=== PATIENT | male | born 1980 ===

== ENCOUNTER → 2016-07-17 | Outpatient (CLI) | payer OTHER | LOC: LAB 13:45 | DX: Z00.00 Encounter for general adult medical examination without abnormal findings (principal) ==

== ENCOUNTER → 2019-01-14 | Outpatient (CLI) | payer BC ==
[2019-01-14 07:56] LABS: EOS # 0.1 (0.04-0.40); HEMATOCRIT 48.5 % (42.0-52.0); HEMOGLOBIN 16.6 g/dL (13.5-18.0); LYMPH# 1.4 (1.50-4.00); MEAN CELL VOLUME 86 fl (78-100); MEAN CORPUSCULAR HEMOGLOBIN 29 pg (27-31); MEAN CORPUSCULAR HGB CONC 34 g/dL (33-37); MEAN PLATELET VOLUME 9.5 fl (7.4-10.4); MONO # 0.5 (0.20-0.80); PLATELET COUNT 207 K/mm3 (130-400); RED BLOOD COUNT 5.65 M/mm3 (4.20-5.60); RED CELL DISTRIBUTION WIDTH 12.3 % (11.5-14.5)
[2019-01-14 08:03] LABS: ALBUMIN 4.3 g/dL (3.5-5.0)
[2019-01-14 08:04] LABS: CALCIUM 9.4 mg/dL (8.3-10.5)
[2019-01-14 08:06] LABS: TOTAL PROTEIN 7.2 g/dL (6.4-8.3)
[2019-01-14 08:07] LABS: TOTAL BILIRUBIN 0.9 mg/dL (0.2-1.2)
== END ==
LOC: LAB 07:42
PROVIDERS: Internal Medicine
DX: Z00.00 Encounter for general adult medical examination without abnormal findings (principal); E78.2 Mixed hyperlipidemia; R53.83 Other fatigue; E66.9 Obesity, unspecified; Z72.0 Tobacco use

== ENCOUNTER → 2021-01-17 | Outpatient (CLI) | payer BC ==
[2021-01-17 09:30] LABS: ALBUMIN 4.5 g/dL (3.5-5.0)
[2021-01-17 09:31] LABS: CALCIUM 9.7 mg/dL (8.3-10.5)
[2021-01-17 09:32] LABS: BASO # 0.02 K/mm3 (0.02-0.10); EOS # 0.04 K/mm3 (0.04-0.40); EOS % 0.7 % (0.0-4.0); HEMATOCRIT 48.5 % (42.0-52.0); HEMOGLOBIN 17.3 g/dL (13.5-18.0); LYMPH# 1.51 K/mm3 (1.50-4.00); MEAN CELL VOLUME 86 fl (78-100); MEAN CORPUSCULAR HEMOGLOBIN 31 pg (27-31); MEAN CORPUSCULAR HGB CONC 36 g/dL (33-37); MEAN PLATELET VOLUME 9.5 fl (7.4-10.4); PLATELET COUNT 207 K/mm3 (130-400); RED BLOOD COUNT 5.63 M/mm3 (4.20-5.60); TOTAL PROTEIN 7.5 g/dL (6.4-8.3); WHITE BLOOD COUNT 5.8 K/mm3 (4.8-10.8)
[2021-01-17 09:34] LABS: TOTAL BILIRUBIN 0.9 mg/dL (0.2-1.2)
== END ==
LOC: LAB 09:02
PROVIDERS: Internal Medicine
DX: Z00.00 Encounter for general adult medical examination without abnormal findings (principal)

== ENCOUNTER → 2024-05-31 | Outpatient (CLI) | payer BC ==
[2024-05-31 11:34] LABS: BASO # 0.02 K/mm3 (0.02-0.10); EOS # 0.02 K/mm3 (0.04-0.40); EOS % 0.4 % (0.0-4.0); HEMATOCRIT 48.9 % (42.0-52.0); MEAN CELL VOLUME 86 fl (78-100); MEAN CORPUSCULAR HEMOGLOBIN 30 pg (27-31); MEAN CORPUSCULAR HGB CONC 35 g/dL (33-37); MEAN PLATELET VOLUME 9.4 fl (7.4-10.4); MONO # 0.33 K/mm3 (0.20-0.80); NEU # 3.17 K/mm3 (1.40-6.50); PLATELET COUNT 207 K/mm3 (130-400); RED BLOOD COUNT 5.67 M/mm3 (4.20-5.60); RED CELL DISTRIBUTION WIDTH 11.9 % (11.5-14.5); WHITE BLOOD COUNT 5.2 K/mm3 (4.8-10.8)
[2024-05-31 11:40] LABS: ALBUMIN 4.8 g/dL (3.5-5.0)
[2024-05-31 11:41] LABS: CALCIUM 9.8 mg/dL (8.3-10.5)
[2024-05-31 11:42] LABS: TOTAL PROTEIN 7.8 g/dL (6.4-8.3)
[2024-05-31 11:44] LABS: TOTAL BILIRUBIN 0.9 mg/dL (0.2-1.2)
[2024-05-31 11:49] LABS: MAGNESIUM 1.98 mg/dL (1.60-2.60)
== END ==
LOC: LAB 10:58
PROVIDERS: Internal Medicine
DX: Z00.00 Encounter for general adult medical examination without abnormal findings (principal); Z12.5 Encounter for screening for malignant neoplasm of prostate; E78.2 Mixed hyperlipidemia